=== PATIENT | male | born 1995 | race Caucasian/White ===

== ENCOUNTER 2018-07-07 17:39 | Observation (INO) | payer BC ==
[~2018-07-07] VITALS: Ht 190.5 cm; Wt 86.2 kg
[~2018-07-07 17:39] MED LIST: LIDOCAINE 2% /EPINEPHRINE 20 ML SDV INJ ONE; ROPIVACAINE 0.5% 5 MG/ML 30 ML SDV ONE
[2018-07-07] MEDS ORDERED: HYDROMORPHONE 1MG/1ML INJ IV STA (17:47)
[2018-07-07] MEDS ORDERED: FENTANYL CITRATE/PF 100MCG/2 ML INJ IV ONE (18:00)
[2018-07-07] MEDS ORDERED: PROPOFOL IV EMULSION 10 MG/ML 20 ML VIAL IV ONE (18:00)
[2018-07-07] MEDS ORDERED: HYDROMORPHONE 2MG/ML 2 MG/ML ML IV ONE (18:00)
--- NOTE | 2018-07-07 18:00 | NUR ---
RECEIVED REPORT FROM CHARGE NURSE TO ASSUME PTS CARE. PT IN ER 5.
--- NOTE | 2018-07-07 18:52 | Diagnostic Imaging Report ---
LEFT KNEE - 3 Images HISTORY: Deformity, left knee gave out playing flag football COMPARISON: None available. FINDINGS: Bones: Marked elevation of the patella. No acute displaced fracture. Joints: The medial and lateral compartment are normal. Soft tissues: The proximal patellar tendon is ill-defined. IMPRESSION: Findings suggestive of a proximal patellar tendon rupture. Signed by: Dr. Mike Werner D.O., M.M.M. on 07/07/2018 6:49 PM
[2018-07-07] MEDS ORDERED: ONDANSETRON HCL INJ 2MG/ML 2ML 2 MG/ML VIAL IV PRN (19:00)
[2018-07-07] MEDS ORDERED: MORPHINE SULFATE 2 MG/ML SYR 1ML IV PRN (19:00)
[2018-07-07] MEDS ORDERED: MORPHINE SULFATE INJ 4 MG/ML INJ 1ML IV PRN (19:15)
--- OUTSIDE RECORDS SUMMARY | 2018-07-07 19:17 | XMS REPORT ---
Author Author [facility] Address Unknown Phone Unavailable Care Team Providers Care Manager Imaging Name Role Phone Mei REMY Unavailable Unavailable Problems This patient has no known problems. Allergies, Adverse Reactions, Alerts This patient has no known allergies or adverse reactions. Medications This patient has no known medications. Results Test Description Test Time Test Comments Text Results Atomic Results Result Comments KNEE LEFT THREE VIEWS 2018-07-07 18:47:00 [place] [id number] Patient Name: RITA HUMPHRIES MR #: [id number] : 1995 Age/Sex: 23/M Req #: [id number] [facility] Physician: Ordered by: JANNETTE REMY MD Report #: [id number] Location: ER Room/Bed: Procedure: [id number] DX/KNEE LEFT THREE VIEWS Exam Date: 07/07/18 Exam Time: 1825 REPORT STATUS: Signed LEFT KNEE - 3 Images HISTORY: Deformity, left knee gave out playing flag football COMPARISON: None available. FINDINGS: Bones: Marked elevation of the patella. No acute displaced fracture. Joints: The medial and lateral compartment are normal. Soft tissues: The proximal patellar tendon is ill-defined. IMPRESSION: Findings suggestive of a proximal patellar tendon rupture. Signed by: John TalleyO., M.M.M. on 07/07/2018 6:49 PM Dictated By: VIK BEST DO 48 Transcribed By: NIKKI on 07/07/181848 COPY TO: JANNETTE REMY MD
--- NOTE | 2018-07-07 19:48 | Diagnostic Imaging Report ---
A single frontal view of the chest. HISTORY: Preop, knee surgery COMPARISON: None available. DISCUSSION: Portable technique, limits sensitivity of the exam. Overlying monitoring leads. Tubes/Lines: None Lungs and pleura: The lungs are well inflated. No evidence of a consolidative pneumonia or pulmonary alveolar edema. No definite pleural effusion or pneumothorax is identified. Heart and mediastinum: The cardiomediastinal silhouette appears unremarkable. Bones and soft tissues: Appear unremarkable, given this limited exam. IMPRESSION: No acute radiographic abnormality. Signed by: Dr. Mike Werner D.O., M.M.M. on 07/07/2018 7:45 PM
[2018-07-07 20:00] VITALS: BP 158/76
[2018-07-07 21:13] LABS: BASOPHILS # (AUTO) 0.1 (0.0-0.1); BASOPHILS % 0.5 % (0.0-1.0); EOSINOPHILS # (AUTO) 0.1 (0.0-0.4); EOSINOPHILS % 0.6 % (0.0-6.0); HEMATOCRIT 47.4 % (38.2-49.6); HEMOGLOBIN 16.9 g/dL (14.0-18.0); LYMPHOCYTES # (AUTO) 2.6 (1.0-3.2); LYMPHOCYTES % 17.8 % (18.0-39.1); MEAN CORPUSCULAR HEMOGLOBIN 29.6 pg (28-32); MEAN CORPUSCULAR HGB CONC 35.7 g/dL (31-35); MONOCYTES # (AUTO) 0.7 (0.2-0.8); NEUTROPHILS # (AUTO) 10.9 (2.1-6.9); NEUTROPHILS % 75.8 % (38.7-80.0); PLATELET COUNT 312 x10e3/uL (140-360); RED BLOOD COUNT 5.71 x10e6/uL (4.3-5.7); RED CELL DISTRIBUTION WIDTH 12.1 % (11.7-14.4)
[2018-07-07 21:17] VITALS: BP 187/83
--- NOTE | 2018-07-07 21:17 | NUR ---
RECEIVED PATIENT VIA STRETCHER WITH E.R. STAFF AND FAMILY MEMBER. LEFT LEG IMMOBILIZED. NO COMPLAIN OF PAIN AT THIS TIME. PATIENT IS ALERT AND ORIENTED.
[2018-07-07 21:22] LABS: INR 0.91; PROTHROMBIN TIME 13.1 seconds (11.9-14.5)
[2018-07-07 21:28] LABS: ALANINE AMINOTRANSFERASE 24 IU/L (0-55); ALBUMIN 4.7 g/dL (3.5-5.0); ALBUMIN/GLOBULIN RATIO 1.9 (0.8-2.0); ALKALINE PHOSPHATASE 74 IU/L (40-150); ANION GAP 16.5 mmol/L (8-16); BLOOD UREA NITROGEN 12 mg/dL (7-26); BUN/CREATININE RATIO 10 (6-25); CALCIUM 9.8 mg/dL (8.4-10.2); CARBON DIOXIDE 22 mmol/L (22-29); CHLORIDE 101 mmol/L (98-107); CREATININE, SERUM 1.23 mg/dL (0.72-1.25); EST GLOMERULAR FILTRATION RATE > 60 ML/MIN (60-); GLUCOSE 104 mg/dL (74-118); POTASSIUM 3.5 mmol/L (3.5-5.1); SODIUM 136 mmol/L (136-145)
--- NOTE | 2018-07-07 21:41 | NUR ---
History & Physical Damion is a pleasant 23 year old male who presents to emergency room with left knee pain and an inability to ambulate that he sustained while he was playing football. He states he took a few steps while running and felt a pop and fell down. He denies any pain in any other extremity. No numbness, paresthesias or loss of distal motor function. 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 Patella tami 23 year old M with Left Patellar Tendon Rupture Left Lower Extremity placed in compressive dressing, knee immobilizer Rest, Ice & Elevation Analgesics PRN DVT Prophylaxis Plan for OR for repair on 07/08/18 NPO except meds after midnight Hold anticoagulation after midnight IVF while NPO DO [facility]
--- NOTE | 2018-07-07 21:44 | NUR ---
PAGED DR. CORDERO TO CLARIFY DIET ORDERS.
--- NOTE | 2018-07-07 21:48 | NUR ---
SPOKE WITH DR. CORDERO. PATIENT CAN HAVE REGULAR DIET AND NPO AFTER MIDNIGHT. STATED HE IS IN THE PROCESS OF PLACING ORDERS.
[2018-07-07] MEDS ORDERED: HEPARIN SOD (PORCINE) 5,000 UNIT/ML VIAL SC ONE (22:00)
[2018-07-07] MEDS: SODIUM CHLORIDE 0.9% 1000ML 1,000 ML IV SCH (22:06)
--- NOTE | 2018-07-07 22:30 | NUR ---
PATIENT SIGNED CONSENT FOR SURGERY TOMORROW. COPY FOR THE SURGERY GIVEN TO CLIENT DELIVERY MANAGER.
[2018-07-07] MEDS: HYDROCODONE/APAP 5MG-325MG TAB PO PRN (23:03)
[2018-07-08] VITALS: BP 131/66
[2018-07-08 00:15] LABS: BILIRUBIN,URINE NEGATIVE (NEGATIVE); CLARITY,URINE CLEAR (CLEAR); COLOR,URINE YELLOW (YELLOW); KETONES,URINE 1+ (NEGATIVE); LEUKOCYTE ESTERASE ,URINE NEGATIVE (NEGATIVE); NITRITE,URINE NEGATIVE (NEGATIVE); PROTEIN,URINE DIPSTICK NEGATIVE (NEGATIVE); URINE UROBILINOGEN 0.2 mg/dL (0.2 - 1); WBC,URINE (MAN) 0-5 /HPF (0-5)
[2018-07-08 00:16] LABS: BACTERIA,URINE RARE /HPF; EPITHELIAL CELLS,URINE RARE /LPF; MUCUS,URINE RARE (RARE)
[2018-07-08 01:17] VITALS: BP 131/66
[2018-07-08 04:00] VITALS: BP 133/65
--- NOTE | 2018-07-08 04:00 | NUR ---
FOLLOW UP ECG RESULT FROM RESPIRATORY DEPARTMENT.
[2018-07-08] MEDS: SODIUM CHLORIDE 0.9% 1000ML 1,000 ML IV SCH (05:44)
--- NOTE | 2018-07-08 05:55 | NUR ---
Hibiclens bath given
[2018-07-08 08:31] VITALS: BP 121/59
[2018-07-08] MEDS ORDERED: LIDOCAINE 1% W/EPINEPHRINE 20 ML VIAL ONE (09:13)
[2018-07-08] MEDS ORDERED: BUPIVACAINE 0.25% 30ML SDV INJ ONE (09:14)
[2018-07-08 09:47] VITALS: BP 121/59
[2018-07-08 12:00] VITALS: BP 104/52
--- NOTE | 2018-07-08 12:07 | NUR ---
RECEIVED REPORT FROM INESSA CALIX, PATIENT RECEIVED TO ROOM, PATIENT ALET AND ORIENTED X3, PAIN DESCRIBED A 2 IN HIS KNEE, IV FLUIDS RESTARTED WITH PUMP, PATIENT PHONE TEXTING HIS FAMILY AND MAKING TELEPHONE CALLS. PATIENT LEFT FOOT IS COOL TO THE TOUCH, LEFT DORSAL PEDALIS PULSE IS WEAK, LEFT KNEE DRESSING, SAMANTHA BANDAGE AND KNEE IMMOBILIZER PRESENT ON LEFT KNEE, PATIENT HIS LEFT TOES OFTEN, PATIENT'S RIGHT LEFT AND FOOT WARM TO THE TOUCH.
--- NOTE | 2018-07-08 12:41 | NUR ---
OPERATIVE NOTE - ORTHOPEDICS PREOPERATIVE DIAGNOSIS: Patellar tendon and retinaculum ruptures, left knee. POSTOPERATIVE DIAGNOSIS: Patellar tendon and retinaculum ruptures, left knee. PROCEDURE PERFORMED: Patellar tendon and medial and lateral retinaculum repair, left knee. TOURNIQUET TIME: 72 minutes EBL: 20cc Indication: The patient is a 23-year-old n male who suffered acute rupture of his patellar tendon diagnosed both by exam as well as x-ray the evening before surgical intervention. He did this while playing football. He had a massive deficit at the inferior pole of his patella on exam. Once opened, he had complete rupture of this patellar tendon as well as a complete rupture of his medial and lateral retinaculum. OPERATIVE PROCEDURE: Prior to being taken to the operating room, patient identity and laterality of the procedure was confirmed. The patient was laid supine on the operative table and received general anesthetic with LMA by Anesthesia Department. The patient received 2 grams of Ancef. A thigh high tourniquet was placed and all bony prominences were well padded. He is prepped and draped in the usual sterile manner. Limb was elevated, exsanguinated and tourniquet placed at 300 mmHg for approximately 72 minutes. Straight incision is carried down through skin and subcutaneous tissue anteriorly. Hemostasis was controlled via electrocoagulation. Patellar tendon was isolated along with the patella itself. A #5 Ethibond suture x2 was placed with via modified Krackow tendon stitch with a single limb both medially and laterally and two central limbs. The inferior pole was freshened up with a scapel and rongeur. Drill bit was utilized to make holes x3 longitudinally across the patella and the limbs passed up through the patella with a suture passer. With the knee in extension, the sutures were tied over the bony bridge superiorly medially and laterally. A running #0-Vicryl suture was utilized for medial and lateral retinaculum repair. A running #2-0 Vicryl for paratenon and bursal closure. There was good reduction of the tendon to the patella. The repair as put through a range of motion from 0-90 degrees without diastasis. Copious irrigation was carried out. Interrupted #2-0 Vicryl was utilized for subcutaneous fat closure and 3-0 Monocryl were placed through the skin. After the skin was clean and dried, an Aquacel dressing was placed, ABDs and a compressive dressing with Suman wrap was placed from the foot to the proximal thigh. Tourniquet was dropped at 72 minutes. Digits were warm and no brawny pulses present at the end of the case. The patient's leg was placed in a hinged brace locked in full extension. Anesthesia was withdrawn and he awoke without complication and was transferred to the recovery room in stable condition.
--- NOTE | 2018-07-08 13:05 | NUR ---
DISCHARGE SUMMARY PRIMARY DIAGNOSIS: Left Knee Patellar Tendon & Retinaculum Tear PROCEDURE PERFORMED: Left Knee Patellar Tendon & Retinaculum Repair REASON FOR HOSPITALIZATION: 23 year old male with left knee pain and inability to ambulate that required surgery. Patient was admitted overnight (07/07/18) for pain control and surgery the next morning. PHYSICAL EXAM ON ADMISSION: Left knee palpable defect inferior to patella with inability to extend knee. XRAYS: Left Knee Patella [place] HOSPITAL COURSE: 23 year old male with left knee pain and inability to ambulate that required surgery. Patient was admitted overnight (07/07/18) for pain control and underwent surgery on (07/08/18) without complication. He was found to be stable after surgery, and received PT. He was discharged home once his pain was controlled. INSTRUCTIONS ON DISCHARGE: Patient is WBAT in knee immobilizer locked in extension. He may removed dressing at one week and replace with dry sterile gauze and Suman Wrap, then change whenever soiled. He should keep the brace on at all times. No range of motion of the knee. Take Aspirin 325 mg twice daily for DVT prophylaxis. Follow up in the office in 2 weeks. MEDICATIONS ON DISCHARGE: Scripts provided Aspirin 325 mg PO BID [place] 5/325 mg PO Q4 PRN Pain DO [facility] [id number] [place] [address], [place] [address] [phone]
[2018-07-08] MEDS ORDERED: CEFAZOLIN SOD 1 GM/NS 50ML 50 ML IV SCH (14:00)
[2018-07-08] MEDS: HYDROCODONE/APAP 5MG-325MG TAB PO PRN (15:41)
[2018-07-08] MEDS ORDERED: HYDROCODON-ACE1 EA11 PO (15:57)
[2018-07-08] MEDS ORDERED: ASPIRIN325 MG PO (15:58)
[2018-07-08] MEDS ORDERED: ONDANSETRON HCL INJ 2MG/ML 2ML 2 MG/ML VIAL ONE (17:21)
[2018-07-08] MEDS ORDERED: ACETAMINOPHEN 1000 MG/100 ML IV ONE (17:21)
[2018-07-08] MEDS ORDERED: PROPOFOL IV EMULSION 10 MG/ML 20 ML VIAL ONE (17:21)
[2018-07-08] MEDS ORDERED: DEXAMETHASONE SOD PHOS INJ 4 MG/ML VIAL ONE (17:21)
[2018-07-08] MEDS ORDERED: CEFAZOLIN SOD 1 GM VIAL ONE (17:21)
[2018-07-08] MEDS ORDERED: KETOROLAC TROMETHAMINE 30 MG/ML VIAL ONE (17:21)
[2018-07-08] MEDS ORDERED: SEVOFLURANE INHAL SOLN 250 ML PEN BTL ONE (17:21)
[2018-07-08] MEDS ORDERED: LIDOCAINE HCL 2% LOCAL INJ 5 ML SDV VIAL INJ ONE (17:21)
[2018-07-08] MEDS ORDERED: MIDAZOLAM HCL 2 MG/2 ML VIAL ONE (17:42)
[2018-07-08] MEDS ORDERED: FENTANYL CITRATE/PF 100MCG/2 ML INJ ONE (17:42)
== END 2018-07-08 16:50 | disposition home or self-care (01) ==
LOC: ER 17:39 → INTOOBSV 19:14 → ERHOLD 19:14 → MED/SURG 21:17
PROVIDERS: ADMIT Orthopaedic Surgery; ATTEND Orthopaedic Surgery
DX: S76.112A Strain of left quadriceps muscle, fascia and tendon, initial encounter (principal); X50.1XXA Overexertion from prolonged static or awkward postures, initial encounter; Y93.61 Activity, american tackle football; Y93.02 Activity, running; Y92.9 Unspecified place or not applicable
CPT/HCPCS: 27380; 36415; 71045; 73562; 80053; 81001; 85025; 85610; 86850; 86870; 86880; 86900; 86905; 93005; 97116; 97161; 97530; 99001; 99284; G0378 ×2; J0131; J0690 ×2; J1100; J1170; J1644; J1885; J2001 ×2; J2250; J2405; J2704; J2795; J7030 ×2